=== PATIENT | male | born 1945 | race Caucasian/White ===

== ENCOUNTER 2018-03-26 07:27 | Day surgery (SDC) | payer OTHER ==
[2018-03-21 15:25] VITALS: BMI 30.8
[2018-03-26] MEDS ORDERED: PROPOFOL 20 ML ONE ×2 (07:29)
[2018-03-26 07:51] VITALS: TEMP 98
[2018-03-26 09:19] VITALS: BP 155/80; PULSE 56
== END 2018-03-26 09:20 | disposition home or self-care (01) ==
LOC: FASU-ENDO 07:27
PROVIDERS: ATTEND Internal Medicine Gastroenterology
PROC: 0DJD8ZZ Inspection of Lower Intestinal Tract, Via Natural or Artificial Opening Endoscopic (ICD-10-PCS; principal; 2018-03-26 08:00)
DX: Z12.11 Encounter for screening for malignant neoplasm of colon (principal); Z80.0 Family history of malignant neoplasm of digestive organs; K57.30 Diverticulosis of large intestine without perforation or abscess without bleeding